=== PATIENT | female | born 1935 | race Caucasian/White ===

== ENCOUNTER → 2017-08-05 | Outpatient (CLI) | payer OTHER, MEDICARE ==
[~2017-08-05] VITALS: Ht 152.4 cm; Wt 45.4 kg
[~2017-08-05] MED LIST: AMITRIPTYLINE H10 M1 PO; ATENOLOL 50 MG50 M1 PO; BENTYL 20 MG TA20 M1 PO; CARDIZEM CD240 MG PO; CARVEDILOL12.5 MG PO; COZAAR 50 MG TA50 M1 PO; DESYREL150 MG PO; DICLOFENAC POTA50 MG PO; DICLOFENAC SOD50 MG PO; ESZOPICLONE3 MG PO; HYDROCHLOROTH12.5 M2 PO; IRON325 PO; LUNESTA2 MG PO; NORVASC2.5 MG PO; PREVALITE PACKE1 PKT PO; TURMERIC500 M2 PO; VITAMIN D-32000 UNIT PO; VITAMINC500 PO
--- NOTE | ~2017-08-05 | P ---
[facility] [place] [address] PROCEDURE REPORT Name: LES PATTON Room #: REG [facility] Bill#: [id number] Admission: 08/05/17 Attend Phys: Chaz Mckinnon Discharge: Date of : 33 Report #: [id number] THIS REPORT FOR: //name// CC: Chaz Krishna MD DATE OF SERVICE: 08/05/2017 PROCEDURE PERFORMED: Upper endoscopy with biopsies. HISTORY OF PRESENT ILLNESS: The patient is an 81-year-old female with a history of anemia, recent hemoglobin 11. She denies any obvious bright red blood per rectum or melena. She underwent a colonoscopy by myself, 3 years ago, with benign polyp removed as well as diverticulosis noted. Apparently, she has had a history of a duodenal or gastric ulcer many years ago with H. pylori and was treated. She is on diclofenac. She denies any heartburn symptoms. No dysphagia. No nausea or vomiting. Her weight has been stable. DESCRIPTION OF PROCEDURE: The risks and benefits of the procedure were explained to the patient, those risks including but not limited to bleeding, perforation, the risk of sedation. She understood these risks and gave informed consent. Sedation was given using propofol per Anesthesia. Next, using a standard Olympus upper endoscope, the scope was placed in the patient's mouth and advanced under direct vision through the esophagus, stomach and into the second portion of the duodenum. Larynx was normal in appearance. The upper and mid esophagus was normal. In the distal esophagus, there appears to be squamous hyperplasia. Biopsies were obtained. No evidence of esophagitis or Ramirez's. Upon entering the stomach, a medium size hiatal hernia was noted. There is mild diffuse gastritis. Biopsies obtained to rule out H. pylori. There were no ulcerations or erosions. No evidence of bleeding. The pylorus was normal and patent. The duodenal bulb and first and second portion were all normal. Because of her history of anemia, biopsies were obtained to rule out celiac sprue. The scope was then withdrawn and the procedure terminated. The patient tolerated the procedure well. IMPRESSION: 1. Hiatal hernia. 2. Gastritis. 3. Otherwise, normal upper endoscopy, no evidence of bleeding. RECOMMENDATIONS: 1. Await biopsy results. 2. Could consider Hemoccult testing stools in the future. If positive, could consider further workup including an M2 capsule. The patient is mildly anemic [address] [address] PROCEDURE REPORT Name: LES PATTON Room #: REG [facility] Bill#: [id number] Admission: 08/05/17 Attend Phys: Chaz Mckinnon Discharge: Date of : 33 Report #: [id number] at this point. Thank you for allowing me to participate in her care. By: [id number] Chaz Selby MD /nt
--- NOTE | ~2017-08-05 | PATH ---
[facility] [place] [address] PATHOLOGY RPT PROCEDURE Name: KIRSTIE CORMIER Room #: REG GORDO Magdiel.#: [id number] Admission: 08/05/17 Date of : 33 Discharge: Report #: [id number] Path Case #: [id number] [facility] Accession Number: [id number] . 01 Material submitted: . PART A: BX OF DUODENUM PART B: GASTRIC BX R/O H. PYLORI PART C: BX OF ESOPHAGUS . 01 Clinical history: . Pre-OP DX: Low hemoglobin Post-Op DX: Anemia, gastritis . 02 Diagnosis: A. Small bowel mucosa, duodenum, endoscopic biopsy: - Nonspecific changes. - Negative for villous blunting or increase in intraepithelial lymphocytosis. . B. Gastric mucosa, gastric rule out H. pylori, endoscopic biopsy: - Mild reactive gastropathy. - Negative for intestinal metaplasia or atrophy. - Negative for Helicobacter pylori (properly controlled immunohistochemical stain performed). . C. Squamous mucosa, esophagus, endoscopic biopsy: - Mild esophagitis showing changes compatible with reflux esophagitis. - Negative for intestinal metaplasia or dysplasia. (IUV:eliana; 08/06/2017) QMS/08/06/2017 . 02 Electronically signed: . Mindi Galvez MD, Pathologist NPI- [id number] . 01 Gross description: . A. Received in formalin labeled "Kirstie Cormier, BX of duodenum, rule out sprue," are multiple segments of warner soft tissue measuring 1.6 x 0.3 x 0.2 cm in aggregate dimensions. The specimen is filtered and entirely submitted in cassette A1. . B. Received in formalin labeled "Kirstie Cormier, gastric BX, rule out H. pylori," are 4 segments of warner soft tissue measuring 0.8 x 0.6 x 0.2 cm in aggregate dimensions and ranging from 0.3-0.6 cm in maximum dimension. The specimen is submitted entirely in cassette B1. . C. Received in formalin labeled "Kirstie Cormier, BX of esophagus," are [address] [place] [address] PATHOLOGY RPT PROCEDURE Name: KIRSTIE CORMIER Room #: REG GODRO Khan#: [id number] Admission: 08/05/17 Date of : 33 Discharge: Report #: [id number] Path Case #: [id number] segments of warner soft tissue measuring 1.5 x 0.8 x 0.1 cm in aggregate dimensions and ranging from 0.2-0.5 cm in maximum dimension. The specimen is submitted entirely in cassette C1. (TSD; 08/05/2017) TOB/TOB . 02 CPT . 495212, [id number], [id number] Performed at: [address] [id number] MD Denton Boyer MD Phone: [phone] Performed at: [address] [id number] MD Mindi Galvez MD Phone: [phone]
== END | disposition home or self-care (01) ==
LOC: GI 08:58
DX: K31.9 Disease of stomach and duodenum, unspecified (principal); K44.9 Diaphragmatic hernia without obstruction or gangrene; K20.9 Esophagitis, unspecified; I10 Essential (primary) hypertension; M19.90 Unspecified osteoarthritis, unspecified site; M81.0 Age-related osteoporosis without current pathological fracture; Z98.890 Other specified postprocedural states; Z87.891 Personal history of nicotine dependence; Z85.828 Personal history of other malignant neoplasm of skin; Z90.710 Acquired absence of both cervix and uterus; Z79.899 Other long term (current) drug therapy; Z88.0 Allergy status to penicillin; Z88.8 Allergy status to other drugs, medicaments and biological substances
CPT/HCPCS: 62110; 62900

== ENCOUNTER → 2020-05-18 | Outpatient (CLI) | payer OTHER, MEDICARE ==
[~2020-05-18] MED LIST changes: +DICYCLOMINE HCL20 MG PO; +MELATONIN10 M3 PO; +NAPROSYN500 MG PO; +PRESERVISION A1 EACH PO
== END ==
LOC: LAB 10:57
PROVIDERS: ATTEND Specialist
DX: Z01.812 Encounter for preprocedural laboratory examination (principal); Z20.822 Contact with and (suspected) exposure to COVID-19

== ENCOUNTER → 2020-05-23 | Outpatient (CLI) | payer OTHER, MEDICARE ==
[~2020-05-23] VITALS: Ht 152.4 cm; Wt 45.4 kg
--- NOTE | 2020-05-23 15:01 | P ---
[facility] [place] [address] PROCEDURE REPORT Name: LES PATTON Room #: REG GORDO Khan#: [id number] Admission: 05/23/20 Attend Phys: Chaz Mckinnon Discharge: Date of : 33 Report #: [id number] THIS REPORT FOR: cc: Beryl Krishna MD, Lisa A. MD McElhinney, Christian C. MD ~ DATE OF SERVICE: 05/23/2020 PROCEDURE PERFORMED: Colonoscopy. HISTORY OF PRESENT ILLNESS: The patient is an 84-year-old female with a history of polyps 5 years ago on colonoscopy. She has a known tortuous sigmoid colon. I was able to use a pediatric colonoscope last time. Previous attempts by other physicians were unsuccessful. She denies any symptoms other than mild constipation. No family history of colon cancer. DESCRIPTION OF PROCEDURE: The risks and benefits of the procedure were explained to the patient, those risks including but not limited to bleeding, perforation and the risk of sedation. She understood these risks and gave informed consent. Sedation was given using propofol per anesthesia. Next, a digital rectal exam was initially performed, which was normal. Next, using a pediatric Olympus colonoscope, the scope was placed in the patient's anus and advanced under direct vision into the sigmoid colon, at which point it was very tortuous and despite several attempts, I was unable to pass the scope through this area; therefore, the pediatric colonoscope was removed and an Olympus upper endoscope was used. I was able to pass through the sigmoid colon with the upper scope and was able to advance the scope into the proximal ascending colon. The overall prep was good in most areas, was fair in some areas. There was a small amount of stool within the cecum. It was difficult to visualize the entire cecum, but the areas that were visualized were normal. The ileocecal valve was normal. The areas visualized in the ascending, transverse and descending colon were normal. Multiple diverticula were again noted in the sigmoid colon. The rectal mucosa was normal. The scope was then withdrawn and the procedure terminated. The patient tolerated the procedure well. IMPRESSION: 1. Sigmoid diverticulosis. 2. Otherwise, normal colonoscopy. RECOMMENDATIONS: Observe at this point. No repeat colonoscopy needed. [facility] [address] [place] [address] PROCEDURE REPORT Name: EZIO PATTONRA Room #: REG [facility].#: [id number] Admission: 05/23/20 Attend Phys: Chaz Mckinnon Discharge: Date of : 34 Report #: [id number] Thank you for allowing me to participate in her care. <ELECTRONICALLY SIGNED> By: Chaz Selby MD 05/23/20 1501 [id number] [id number] Chaz Selby MD /nt
== END | disposition home or self-care (01) ==
LOC: GI 08:35
PROVIDERS: ATTEND Specialist
DX: K59.00 Constipation, unspecified (principal); K63.89 Other specified diseases of intestine; K57.30 Diverticulosis of large intestine without perforation or abscess without bleeding; I10 Essential (primary) hypertension; M19.90 Unspecified osteoarthritis, unspecified site; M81.0 Age-related osteoporosis without current pathological fracture; Z86.010 Personal history of colon polyps; Z90.710 Acquired absence of both cervix and uterus; Z98.890 Other specified postprocedural states; Z79.899 Other long term (current) drug therapy; Z85.828 Personal history of other malignant neoplasm of skin; Z98.41 Cataract extraction status, right eye; Z98.42 Cataract extraction status, left eye; Z88.0 Allergy status to penicillin; Z88.8 Allergy status to other drugs, medicaments and biological substances
CPT/HCPCS: 62110; 62900